=== PATIENT | female | born 1995 | race Caucasian/White ===

== ENCOUNTER 2020-09-04 18:03 | Emergency (ER) | payer SELFPAY ==
[~2020-09-04] VITALS: Ht 172.7 cm; Wt 56.7 kg
== END 2020-09-04 20:08 | disposition home or self-care (01) ==
LOC: ER 18:03
DX: K64.4 Residual hemorrhoidal skin tags (principal); F17.200 Nicotine dependence, unspecified, uncomplicated
CPT/HCPCS: 99283; A9270

== ENCOUNTER 2022-06-23 06:20 | Day surgery (SDC) | payer OTHER ==
[~2022-06-23] VITALS: Ht 172.7 cm; Wt 57.3 kg
--- NOTE | 2022-06-23 07:33 | NUR ---
DR BRADFORD STARTED IV, 22G IN LEFT HAND.
--- NOTE | 2022-06-23 10:01 | NUR ---
Patient up to Ambulate independently. Gait steady. D/C TEACHING DONE. PT GIVES VERBAL UNDERSTANDING. Discharged via wheelchair to private car for ride home.
== END 2022-06-23 22:43 | disposition home or self-care (01) ==
LOC: ORSCMMR 06:20 → ORD 07:30 → ORSCMMR 07:30
PROVIDERS: Surgery
PROC: 0DBQ7ZZ Excision of Anus, Via Natural or Artificial Opening (ICD-10-PCS; principal; 2022-06-23 07:30)
DX: K60.3 Anal fistula (principal); F17.210 Nicotine dependence, cigarettes, uncomplicated
CPT/HCPCS: A9270; J0295; J1100; J1885; J2250; J2405; J2704; J3010; J7120

== ENCOUNTER → 2022-08-10 | Outpatient (CLI) | payer OTHER | END | disposition home or self-care (01) | LOC: LAB 13:20 → LAB SHORT 13:20 | PROVIDERS: Registered Nurse Community Health | DX: Z12.4 Encounter for screening for malignant neoplasm of cervix (principal) | CPT/HCPCS: G0145 ==